=== PATIENT | female | born 1985 | race Caucasian/White ===

== ENCOUNTER 2019-09-24 06:03 | Emergency (ER) | payer SELFPAY ==
[2019-09-24] MEDS ORDERED: ONDANSETRON HCL INJ/PF 4 MG/2 ML SDV IV ONE (06:52)
[2019-09-24] MEDS ORDERED: RINGERS SOLUTION,LACTATED 1,000 ML IV ONE (06:52)
--- NOTE | 2019-09-24 06:56 | ER Document Report ---
ED General - General Chief Complaint: Sore Throat Stated Complaint: SORE THROAT Time Seen by Provider: 09/24/19 06:29 - HPI Notes: Patient is a 34-year-old female who presents to the emergency department for evaluation. She states she is had a sore throat for the last 3 weeks. She states she feels like her uvula has been swollen. She states yesterday after dinner she developed some right upper quadrant pain. She described it as sharp and stabbing. It started in the evening, around 10:00. She states that during dinner she started having some nausea, could not finish her meal. She states she has had 3-4 episodes of nonbloody, nonbilious emesis. She states that her last episode of emesis had "red streaks" she was concerned for blood. She has had 3-4 episodes of diarrhea in the last 24 hours, she denies any melena or hematochezia. She states she is unsure as to whether or not she is had fever, but she has had shaking chills. She denies any shortness of breath, states she has had a minimal cough, just attributed that to her throat. She denies any shortness of breath. Her pain in her stomach is not worsened by deep breaths. - Related Data Allergies/Adverse Reactions: No Known Drug Allergies Allergy (Verified 09/24/19 06:11) Home Medications: Trileptal, Adderall Past Medical History - General Information source: Patient - Social History Smoking Status: Current Every Day Smoker Frequency of alcohol use: None Family History: DM, Malignancy - Multiple myeloma in father - Past Medical History Cardiac Medical History: Reports: Hx Pulmonary Embolism Psychiatric Medical History: Reports: Hx Attention Deficit Hyperactivity Disorder, Hx Bipolar Disorder Past Surgical History: Reports: Hx Section Review of Systems - Review of Systems Constitutional: See HPI EENT: See HPI Respiratory: See HPI Gastrointestinal: See HPI -: Yes All other systems reviewed and negative Physical Exam - Vital signs Vitals: Temp Pulse Resp BP Pulse Ox 98.3 F 72 18 139/86 H 99 09/24/19 06:12 09/24/19 06:12 09/24/19 06:12 09/24/19 06:12 09/24/19 06:12 - Notes Notes: This is an obese 34-year-old female, who appears her stated age, no acute distress. Vital signs reviewed, please refer to chart. Head is normocephalic, atraumatic. Pupils equal round, reactive to light. Neck is supple without meningismus. Heart is regular rate and rhythm. Lungs are clear to auscultation bilaterally. Abdomen is soft, nontender, normoactive bowel sounds throughout. Extremities without cyanosis, clubbing. Posterior calves are nontender. Peripheral pulses are equal. Skin is warm and dry. Patient is awake, alert, neurological exam is nonfocal. Course - Re-evaluation Re-evalutation: 09/24/19 09:23 Patient presents to the emergency department for evaluation. She complains of sore throat, nausea, vomiting, diarrhea, side pain. Her symptoms are very vague. Repeat abdominal exams are entirely benign. Her vital signs are unremarkable. Laboratory investigations were obtained and showed no abnormality. Rapid strep screen was negative, culture is pending. Given her symptoms, I did order a COVID-19 test. The patient was notified that she is a PUI. She is to isolate until symptoms resolve, or pending negative test, with close follow-up with primary care. She voiced understanding. Otherwise she is to take symptomatic medications. She is to return to the ED with worsening. The patient was evaluated during the global COVID-19 pandemic and that diagnosis was suspected/considered upon their initial presentation. Their evaluation, treatment, and testing was consistent with current guidelines for patients who present with complaints or symptoms that may be related to COVID-19. - Vital Signs Vital signs: Temp Pulse Resp BP Pulse Ox 98.3 F 72 18 139/86 H 99 09/24/19 06:12 09/24/19 06:12 09/24/19 06:12 09/24/19 06:12 09/24/19 06:12 - Laboratory Result Diagrams: 09/24/19 07:46 09/24/19 07:46 Laboratory results interpreted by me: 09/24/19 07:46 RDW 16.6 H Discharge - Discharge Clinical Impression: Nausea vomiting and diarrhea, Right upper quadrant abdominal pain Pharyngitis Qualifiers: Pharyngitis/tonsillitis etiology: unspecified etiology Qualified Code(s): J02.9 - Acute pharyngitis, unspecified Condition: Stable Disposition: HOME, SELF-CARE Instructions: Abdominal Pain ([facility]), Sore Throat ([facility]), Vomiting ([facility]), Diarrhea, Nonspecific ([facility]), COVID-19 Guidance for Persons Under Investigation Additional Instructions: Rest, stay well-hydrated. Tylenol as needed for pain. Clear liquids, advance slowly to bland diet. You have symptoms that may be consistent with COVID-19. You should isolate at home for the next 5 to 7 days, until you are at least 5 days symptom-free, or until you receive a negative test. Follow-up with your primary care provider this week. Return to the emergency department worsening or new concerning symptoms of any sort.
[2019-09-24 07:47] LABS: APPEARANCE,URINE CLEAR; BILIRUBIN,URINE NEGATIVE (NEGATIVE); COLOR,URINE YELLOW; GLUCOSE, URINE NEGATIVE (NEGATIVE); KETONES,URINE NEGATIVE (NEGATIVE); LEUKOCYTE ESTERASE,URINE NEGATIVE (NEGATIVE); NITRITE,URINE NEGATIVE (NEGATIVE); PROTEIN,URINE NEGATIVE (NEGATIVE); URINE SPECIFIC GRAVITY 1.012; UROBILINOGEN,URINE NEGATIVE mg/dL (<2.0)
[2019-09-24 08:14] LABS: ABSOLUTE EOSINOPHILS # (AUTO) 0.1 10^3/uL (0.0-0.6); ABSOLUTE LYMPHOCYTES (AUTO) 3.3 10^3/uL (0.5-4.7); ABSOLUTE MONOCYTES (AUTO) 0.5 10^3/uL (0.1-1.4); ABSOLUTE NEUT (AUTO) 5.3 10^3/uL (1.7-8.2); BASOPHILS % (AUTO) 0.4 % (0-2); EOSINOPHILS % (AUTO) 1.5 % (0-6); HEMATOCRIT 40.4 % (36.0-47.0); HEMOGLOBIN 13.3 g/dL (12.0-15.5); LYMPHOCYTES % (AUTO) 35.8 % (13-45); MEAN CORPUSCULAR HEMOGLOBIN 29.7 pg (27.0-33.4); MEAN CORPUSCULAR VOLUME 90 fl (80-97); MONOCYTES % (AUTO) 5.1 % (3-13); PLATELET COUNT 268 10^3/uL (150-450); RED BLOOD COUNT 4.48 10^6/uL (3.72-5.28); RED CELL DISTRIBUTION WIDTH 16.6 % (11.5-14.0); SEGMENTED NEUTROPHILS % (AUTO) 57.2 % (42-78); TOTAL CELLS COUNTED % (AUTO) 100 %; WHITE BLOOD COUNT 9.2 10^3/uL (4.0-10.5)
[2019-09-24 08:30] LABS: ALBUMIN 4.1 g/dL (3.5-5.0); ALKALINE PHOSPHATASE 76 U/L (38-126); ANION GAP 6 (5-19); ASPARTATE AMINO TRANSFERASE 22 U/L (14-36); BILIRUBIN,TOTAL 0.4 mg/dL (0.2-1.3); BLOOD UREA NITROGEN 10 mg/dL (7-20); CALCIUM 9.1 mg/dL (8.4-10.2); CARBON DIOXIDE 28 mmol/L (22-30); CHLORIDE 103 mmol/L (98-107); GLUCOSE 95 mg/dL (75-110); POTASSIUM 4.3 mmol/L (3.6-5.0); TOTAL PROTEIN 7.3 g/dL (6.3-8.2)
[2019-09-24 10:12] VITALS: BP 147/90
== END 2019-09-24 09:50 | disposition home or self-care (01) ==
LOC: ER 06:03
DX: J02.9 Acute pharyngitis, unspecified (principal); R11.2 Nausea with vomiting, unspecified; R19.7 Diarrhea, unspecified; R10.11 Right upper quadrant pain; R68.83 Chills (without fever); R05 Cough; F17.200 Nicotine dependence, unspecified, uncomplicated; F90.9 Attention-deficit hyperactivity disorder, unspecified type; Z79.899 Other long term (current) drug therapy; Z20.828 Contact with and (suspected) exposure to other viral communicable diseases
CPT/HCPCS: 99283; 96361; 96374; 36415; 87070; 87880; 83690; 84703; 85025; 87077; 80053; 81001; J2405; J7120